=== PATIENT | male | born 1995 | race Caucasian/White ===

== ENCOUNTER 2025-05-20 20:09 | Emergency (ER) | payer SELFPAY ==
[2025-05-20 20:13] VITALS: BP 151/71; PULSE 101; RESP 18; TEMP 36.4; O2SAT 100
[2025-05-20] MEDS: FLUORESCEIN SOD 1 MG/STRIP EACH EYE (22:05)
--- NOTE | 2025-05-20 22:19 | ED_ITS ---
HPI - Eye Problem General Chief complaint: Eye Problems Stated complaint: sharp plant poked him in right eye Time Seen by Provider: 05/20/25 21:52 Source: patient Mode of arrival: ambulatory Limitations: no limitations History of Present Illness HPI Narrative: This is a 29-year-old male that presents to the emergency department for right eye injury. Reports he was poked in the eye with a sharp plant. Denies vision changes. Reports redness and tearing. He does not wear contacts or glasses Related Data Allergies Allergy/AdvReac Type Severity Reaction Status Date / Time No Known Allergies Allergy Mild Unverified 12/19/08 14:05 Review of Systems Review of Systems: All systems reviewed & are unremarkable except as noted in HPI and below Exam Narrative: GENERAL: Well-appearing, well-nourished, and in no acute distress. HEAD: Normocephalic, atraumatic. EYES: PERRLA and EOMI. Conjunctival injection on the right with tearing. Visual acuity 20 on the right, 22 on the left. Positive fluorescein stain uptake with corneal abrasion noted the 3 o'clock position in the right eye EXTREMITIES: Normal range of motion. No edema. SKIN: Warm, dry, no rash. NEURO: No focal deficits. Alert and oriented x3. PSYCH: Normal mood and affect Course Vital Signs Vital signs: Vital Signs Temperature 97.6 F 05/20/25 20:13 Pulse Rate 101 H 05/20/25 20:13 Respiratory Rate 18 05/20/25 20:13 Blood Pressure 151/71 H 05/20/25 20:13 Pulse Oximetry 100 05/20/25 20:13 Oxygen Delivery Room Air 05/20/25 20:13 Temperature 97.6 F 05/20/25 20:13 Pulse Rate 101 H 05/20/25 20:13 Respiratory Rate 18 05/20/25 20:13 Blood Pressure 151/71 H 05/20/25 20:13 Pulse Oximetry 100 05/20/25 20:13 Oxygen Delivery Room Air 05/20/25 20:13 [facility] MDM Narrative Medical decision making narrative: Patient presents to the emergency department after eye injury. Corneal abrasion noted. Will be started on prophylactic antibiotics. Instructed to follow-up with ophthalmology Differential Diagnosis Differential Diagnosis: corneal abrasion, conjunctivitis Critical Care Time Critical Care Time Critical Care Time: No Discharge Plan Discharge Clinical Impression: Corneal abrasion Qualifiers: Encounter type: initial encounter Laterality: right Qualified Code(s): S05.01XA - Injury of conjunctiva and corneal abrasion without foreign body, right eye, initial encounter Patient Disposition: Home Condition: Stable Instructions: Corneal Abrasion (ED) Additional Instructions: Return to the emergency department if you experience fever, vision changes, redness and swelling around your eye, or any other symptoms that are concerning to you Apply topical antibiotic as prescribed Follow-up with ophthalmology. [facility] if needed Patient Language: Kiswahili Prescriptions: New erythromycin 5 mg/gram (0.5 %) ointment 1 applic RIGHT EYE Q6H 5 Days Qty: 3.5 0RF Follow-up/Referrals: Celeste,MD Fam [Primary Care Provider, Pediatrics]
[2025-05-20] MEDS: DACRIOSE EYE IRRIGATION 118 ML BOTTLE (22:34)
== END 2025-05-20 22:45 | disposition home or self-care (01) ==
PROVIDERS: Emergency Provider Physician Assistant; PCP Pediatrics
DX: S05.01XA Injury of conjunctiva and corneal abrasion without foreign body, right eye, initial encounter (principal); W22.8XXA Striking against or struck by other objects, initial encounter
CPT/HCPCS: 99283; A9270